=== PATIENT | male | born 1985 | race African-American/Black ===

== ENCOUNTER 2023-05-18 20:57 | Emergency (ER) | payer OTHER, SELFPAY ==
--- NOTE | ~2023-05-18 | CT_ITS ---
EXAMINATION: CT abdomen pelvis w con DATE: 05/18/2023 22:44 INDICATION: Abdominal pain. TECHNIQUE: Computed tomography (CT) of the abdomen and pelvis was performed with 100 mL Omnipaque 350 intravenous contrast. Automated exposure control and iterative reconstruction technique were employe d. The dose-length product was 1236.62 mGy-cm. COMPARISON: None. FINDINGS: The visualized portions of the lung bases demonstrate mild atelectasis in right middle lobe . No pleural effusion. The heart size is normal. No pericardial effusion. There are cysts in the live r measuring up to 12 mm. The gallbladder, spleen, pancreas, adrenal glands, and left kidney are celio l. There is a 7 mm cyst in right kidney. There are no dilated loops of bowel. The appendix is normal. There are no pathologically enlarged lymph nodes. There is no free intraperitoneal fluid. There is m ild thoracic and lumbar spondylosis. IMPRESSION: 1. No etiology for the patient's symptoms. Reviewed, dictated and finalized at location E. [employer] SUR[employer]Y FIELD ASSISTANT
[2023-05-18 21:00] VITALS: BP 149/86; PULSE 68; RESP 20; TEMP 36.6; O2SAT 100
[2023-05-18 21:59] VITALS: PULSE 71; RESP 16; TEMP 36.4; O2SAT 99
[2023-05-18 22:10] LABS: Basophils Percent Auto 0.3 % (0.2-1.2); Eosinophils Absolute Auto 0.1 K/mm3 (0-0.3); Eosinophils Percent Auto 1.8 % (0-4.4); Hematocrit 44.5 % (42.0-52.0); Hemoglobin 15.4 g/dL (14.0-18.0); Immature Granulocyte Absolute 0.02 K/mm3 (0.00-0.031); Immature Granulocyte Percent A 0.3 % (0-0.5); Lymphocytes Absolute Auto 1.88 K/mm3 (0.9-3.2); Lymphocytes Percent Auto 27.7 % (18.3-44.2); Mean Corpuscular HGB Conc 34.6 g/dl (32-36); Mean Corpuscular Hemoglobin 30.6 pg (26-34); Mean Corpuscular Volume 88.3 fl (80-100); Mean Platelet Volume 9.5 fl (7.4-10.4); Monocytes Absolute Auto 0.4 K/mm3 (0.1-0.6); Monocytes Percent Auto 5.5 % (2.6-8.5); Neutrophils Absolute Auto 4.4 K/mm3 (1.3-6.7); Neutrophils Percent Auto 64.4 % (45.5-73.1); Platelet Count Result 204 k/mm3 (150-375); Red Blood Count 5.04 M/mm3 (4.6-6.20); Red Cell Distribution Width 12.2 % (11.5-14.5); White Blood Count 6.8 K/mm3 (4.5-10.0)
[2023-05-18] MEDS: DICYCLOMINE HCL INJ 20 MG/2 ML VIAL IM (22:15)
[2023-05-18] MEDS: SODIUM CHLORIDE 0.9% IV 1,000 ML 999 ML IV CONT (22:16)
[2023-05-18] MEDS: ONDANSETRON INJ 4 MG/2 ML VIAL IV PUSH (22:16)
[2023-05-18 22:17] LABS: Appearance Urine Clear (Clear); Bacteria Urine None Seen /hpf; Bilirubin Urine Negative (Negative); Blood Urine Negative (Negative); Color Urine Yellow (Yellow); Glucose Urine UA Negative (Negative); Ketones Urine Trace mg/dL (Negative); Leukocyte Esterase Ur Negative LEU/UL (Negative); Nitrate Urine Negative (Negative); Non Pathogenic Casts 0-2; Protein Urine Trace mg/dL (Negative); RBC Urine 0-2 /hpf (0-2); Specific Grav Ur 1.025 (1.001-1.035); Squamous Epithelial Cell Urine None seen /hpf (Few); WBC Urine 0-5 /hpf
[2023-05-18 22:19] LABS: Alanine Aminotransferase 35 U/L (6-50); Albumin Level 4.3 g/dL (3.5-5.1); Alkaline Phosphatase 73 U/L (38-126); Anion Gap 6 mmol/L (8-16); Aspartate Amino Transferase 33 U/L (17-59); Bilirubin,Total 0.8 mg/dL (0.2-1.3); Blood Urea Nitrogen 15 mg/dL (9-20); Calcium 8.8 mg/dL (8.4-10.2); Carbon Dioxide 28 mmol/L (22-30); Chloride 106 mmol/L (98-107); Estimated CRCL calculation 99 ml/min; Estimated Glomerular Filt Rate > 60; Glucose 112 mg/dL (65-110); Lipase 21 U/L (23-300); Potassium 3.5 mmol/L (3.4-5.0); Sodium 140 mmol/L (137-145)
[2023-05-18 22:44] LABS: Add Urine Microscopic? YES
[2023-05-18] MEDS: MORPHINE SULFATE (*CRX) 4 MG/ML INJ IV PUSH (23:57)
[2023-05-19] VITALS: BP 123/105; PULSE 73; RESP 16; O2SAT 99
[2023-05-19] MEDS: PROCHLORPERAZINE EDISYLATE 10 MG/2 ML VIAL IV PUSH (00:26)
[2023-05-19 01:32] VITALS: BP 128/73; PULSE 68; RESP 16; O2SAT 98
--- NOTE | 2023-05-19 01:49 | ED.GENADULT ---
HPI - General Adult General Chief complaint: Abdominal Pain Stated complaint: abdominal pain Time Seen by Provider: 05/18/23 21:55 History of Present Illness HPI narrative: patient is a 37-year-old gentleman who presents emergency department with chief complaint of abdominal pain. Patient reports that for the last 3 days he has had pain in the epigastric region reports that he has had some nausea and vomiting with this and diarrhea. Patient reports that he has had no fever denies chills denies urinary symptoms. The patient reports no prior abdominal surgery Related Data Allergies Allergy/AdvReac Type Severity Reaction Status Date / Time No Known Allergies Allergy Verified 05/18/23 21:58 Review of Systems Review of Systems: A 10 system review of systems was completed on the patient and is negative except for what is stated in the HPI. Nursing and ancillary documentation was reviewed. Exam Narrative: GENERAL: Well-appearing, well-nourished, and in no acute distress. HEAD: Normocephalic, atraumatic. EYES: PERRLA and EOMI. ENT: Nares clear, no rhinorrhea or epistaxis. Mucous membranes moist. NECK: Supple. CHEST: Clear to auscultation. No respiratory distress. HEART: Regular rate and rhythm. No murmur heard. Normal peripheral pulses. ABDOMEN: Soft, mild tenderness palpation in the epigastric region, nondistended, normal active bowel sounds. EXTREMITIES: Normal range of motion. No edema. SKIN: Warm, dry, no rash. NEURO: No focal deficits. Alert and oriented x3. PSYCH: Normal mood and affect. Course Vital Signs Vital signs: Vital Signs Temperature 36.6 C 05/18/23 21:00 Pulse Rate 68 05/18/23 21:00 Respiratory Rate 20 05/18/23 21:00 Blood Pressure 149/86 H 05/18/23 21:00 Pulse Oximetry 100 05/18/23 21:00 Oxygen Delivery Room Air 05/18/23 21:00 Temperature 36.4 C 05/18/23 21:59 Pulse Rate 68 05/19/23 01:32 Respiratory Rate 16 05/19/23 01:32 Blood Pressure 128/73 05/19/23 01:32 Pulse Oximetry 98 05/19/23 01:32 Oxygen Delivery Room Air 05/18/23 21:00 Medical Decision Making [facility] Narrative Medical decision making narrative: differential diagnosis includes pancreatitis, colitis, diverticulitis, appendicitis, cholecystitis, viral syndrome laboratory studies were obtained which showed a normal CBC normal CMP negative lipase urinalysis showed no evidence UTI there was trace ketones patient received IV fluids and antiemetics in the emergency department as well as antispasmodics and pain control. CT scan of the abdomen pelvis showed no acute abnormalities Vital Signs Vital Signs: Vital Signs Temperature 36.6 C 05/18/23 21:00 Pulse Rate 68 05/18/23 21:00 Respiratory Rate 20 05/18/23 21:00 Blood Pressure 149/86 H 05/18/23 21:00 Pulse Oximetry 100 05/18/23 21:00 Oxygen Delivery Room Air 05/18/23 21:00 Temperature 36.4 C 05/18/23 21:59 Pulse Rate 68 05/19/23 01:32 Respiratory Rate 16 05/19/23 01:32 Blood Pressure 128/73 05/19/23 01:32 Pulse Oximetry 98 05/19/23 01:32 Oxygen Delivery Room Air 05/18/23 21:00 Lab Data 05/18/23 22:04 05/18/23 22:04 Labs: Lab Results 05/18/23 05/18/23 Range/Units 21:55 22:04 WBC 6.8 (4.5-10.0) K/mm3 RBC 5.04 (4.6-6.20) M/mm3 Hgb 15.4 (14.0-18.0) g/dL Hct 44.5 (42.0-52.0) % MCV 88.3 (80-100) fl MCH 30.6 (26-34) pg MCHC 34.6 (32-36) g/dl RDW 12.2 (11.5-14.5) % Plt Count 204 (150-375) k/mm3 MPV 9.5 (7.4-10.4) fl Immature Gran % (Auto) 0.3 (0-0.5) % Neut % (Auto) 64.4 (45.5-73.1) % Lymph % (Auto) 27.7 (18.3-44.2) % Calloway % (Auto) 5.5 (2.6-8.5) % Eos % (Auto) 1.8 (0-4.4) % Baso % (Auto) 0.3 (0.2-1.2) % Lymph # (Auto) 1.88 (0.9-3.2) K/mm3 Calloway # (Auto) 0.4 (0.1-0.6) K/mm3 Eos # (Auto) 0.1 (0-0.3) K/mm3 Baso # (Auto) 0.0 (0.0-0.1) K/mm3 Abs Immat Gran (auto)
[2023-05-19] MEDS: HYDROmorphone HCL INJ (*CRX) 1 MG/ML SYR IV PUSH (02:09)
[2023-05-19 02:29] VITALS: BP 140/76; PULSE 68; RESP 19; TEMP 36.6; O2SAT 99
== END 2023-05-19 02:30 | disposition home or self-care (01) ==
PROVIDERS: Emergency Provider Emergency Medicine; PCP Physician Assistant
DX: R10.84 Generalized abdominal pain (principal); R11.2 Nausea with vomiting, unspecified
CPT/HCPCS: 36415; 74177; 80053; 81001; 81003; 83690; 85025; 96361; 96372; 96374; 96375; 99284; J0500; J0780; J1170; J2270; J2405; J7030; J7050; Q9967

== ENCOUNTER 2023-12-27 15:23 | Outpatient (CLI) | payer OTHER, SELFPAY ==
[2023-12-27 15:36] LABS: Basophils Percent Auto 0.5 % (0.2-1.2); Eosinophils Absolute Auto 0.1 K/mm3 (0-0.3); Hemoglobin 15.3 g/dL (14.0-18.0); Immature Granulocyte Absolute 0.01 K/mm3 (0.00-0.031); Immature Granulocyte Percent A 0.2 % (0-0.5); Lymphocytes Absolute Auto 2.21 K/mm3 (0.9-3.2); Lymphocytes Percent Auto 33.4 % (18.3-44.2); Mean Corpuscular HGB Conc 34.8 g/dl (32-36); Mean Corpuscular Volume 89.1 fl (80-100); Mean Platelet Volume 9.7 fl (7.4-10.4); Monocytes Absolute Auto 0.3 K/mm3 (0.1-0.6); Monocytes Percent Auto 4.8 % (2.6-8.5); Neutrophils Absolute Auto 3.9 K/mm3 (1.3-6.7); Neutrophils Percent Auto 59.1 % (45.5-73.1); Platelet Count Result 199 k/mm3 (150-375); Red Blood Count 4.94 M/mm3 (4.6-6.20); Red Cell Distribution Width 12.4 % (11.5-14.5); White Blood Count 6.6 K/mm3 (4.5-10.0)
[2023-12-27 16:24] LABS: Iron 92 ug/dL (49-181)
[2023-12-27 16:27] LABS: Alanine Aminotransferase 33 U/L (6-50); Albumin Level 4.4 g/dL (3.5-5.1); Alkaline Phosphatase 74 U/L (38-126); Anion Gap 9 mmol/L (4-12); Aspartate Amino Transferase 33 U/L (17-59); Bilirubin,Total 0.9 mg/dL (0.2-1.3); Blood Urea Nitrogen 15 mg/dL (9-20); Calcium 9.6 mg/dL (8.4-10.2); Carbon Dioxide 29 mmol/L (22-30); Chloride 102 mmol/L (98-107); Estimated Glomerular Filt Rate > 60; Glucose 103 mg/dL (65-110); Potassium 3.7 mmol/L (3.4-5.0); Sodium 140 mmol/L (137-145)
[2023-12-27 16:33] LABS: Percent Iron Saturation 33 % (20-50)
== END 2023-12-27 15:24 | disposition home or self-care (01) ==
LOC: ANHLAB 15:25
PROVIDERS: PCP Physician Assistant; Visit Provider Internal Medicine Hematology & Oncology
DX: E83.19 Other disorders of iron metabolism (principal)
CPT/HCPCS: 36415; 80053; 81256; 82728; 83540; 83550; 85025